=== PATIENT | female | born 1960 | race Caucasian/White ===

== ENCOUNTER → 2019-01-30 | Outpatient (CLI) | payer OTHER | LOC: RAD 15:02 | DX: Z12.31 Encounter for screening mammogram for malignant neoplasm of breast (principal) ==

== ENCOUNTER 2019-06-25 16:12 | Emergency (ER) | payer OTHER ==
[~2019-06-25] VITALS: Ht 165.1 cm; Wt 63.5 kg
[2019-06-25] MEDS ORDERED: PREVACID15 MG PO (16:16)
[2019-06-25] MEDS ORDERED: COZAAR 25 MG TA25 M1 PO (16:16)
[2019-06-25] MEDS ORDERED: ESTRACE0.5 MG PO (16:16)
[2019-06-25] MEDS ORDERED: ZYRTEC10 M2 PO (16:16)
[2019-06-25] MEDS ORDERED: PROVERA2.5 MG PO (16:16)
[2019-06-25 17:24] LABS: ABSOLUTE NEUTROPHILS 6.8 thou/uL (1.4-8.2); BASOPHILS 0.1 % (0.0-2.0); EOSINOPHILS 0.2 % (0.0-3.0); HEMATOCRIT 40.8 % (37.0-47.0); HEMOGLOBIN 13.6 gm/dL (12.0-15.0); MCH 30.3 pg (26.0-34.0); MCHC 33.2 g/dL (28.0-37.0); MCV 91.4 fL (80.0-100.0); MONOCYTES 1.5 % (1.0-8.0); PLATELET COUNT 315 thou/uL (150-400); POLYS 93.2 % (36.0-66.0); RBC 4.47 mil/uL (4.20-5.00); WBC 7.3 thou/uL (4.0-11.0)
[2019-06-25 17:33] LABS: CALCIUM 9.4 mg/dL (8.5-10.1); CREATININE 0.8 mg/dL (0.6-1.0); POTASSIUM 3.6 mmol/L (3.5-5.1)
[2019-06-25 18:30] VITALS: BP 153/80
== END 2019-06-25 18:56 | disposition home or self-care (01) ==
LOC: ER 16:12
PROVIDERS: Physician Assistant
DX: H70.811 Postauricular fistula, right ear (principal); I10 Essential (primary) hypertension

== ENCOUNTER → 2020-02-05 | Outpatient (CLI) | payer OTHER ==
[~2020-02-05] MED LIST: COZAAR 25 MG TA25 M1 PO; ESTRACE0.5 MG PO; PREVACID15 MG PO; PROVERA2.5 MG PO; ZYRTEC10 M2 PO
== END ==
LOC: BC 08:27
PROVIDERS: ATTEND Family Medicine
DX: Z12.31 Encounter for screening mammogram for malignant neoplasm of breast (principal)

== ENCOUNTER → 2021-02-17 | Outpatient (CLI) | payer OTHER | LOC: BC 15:13 | PROVIDERS: ATTEND Family Medicine | DX: Z12.31 Encounter for screening mammogram for malignant neoplasm of breast (principal) ==